=== PATIENT | male | born 1965 | race African-American/Black ===

== ENCOUNTER 2021-10-24 08:55 | Emergency (ER) | payer SELFPAY ==
[2021-10-24 09:08] VITALS: BP 136/89
--- NOTE | 2021-10-24 11:07 | XRay Report ---
NECK SOFT TISSUE 2 VIEWS INDICATION: possible plastic foreign body. COMPARISON: 08/21/2020 IMPRESSION: No radiopaque foreign body is detected on x-ray. Parapharyngeal soft tissues appear unr emarkable. The bony structures are intact. The upper airway appears widely patent. Signer Name: Ranjan Peña Jr, MD Signed: 10/24/2021 11:02 AM Workstation Name: [id number]
--- NOTE | 2021-10-24 11:32 | Emergency Department Report ---
ED General Adult HPI - General Chief complaint: Sore Throat Stated complaint: SOMETHING IN THROAT Time Seen by Provider: 10/24/21 09:50 Source: patient, educational interpreter Mode of arrival: Ambulatory Limitations: Language Barrier - History of Present Illness Initial comments: 56-year-old male patient presents with complaints of possible foreign body in his throat. Patient states he accidentally swallowed the plastic tab of a bottle. He denies any nausea or vomiting. No cough or chest pain per patient. He has not tried any medications for symptoms. - Related Data Previous Rx's Medication Instructions Recorded Last Taken Type Ibuprofen [Motrin 800 MG tab] 800 mg PO Q8HR PRN #20 tablet 10/24/21 Unknown Rx Nystas/Diphen/Xyl Visc/Mylanta 5 - 10 ml MM Q4H PRN #120 ml 10/24/21 Unknown Rx [Magic Mouthwash] Allergies Allergy/AdvReac Type Severity Reaction Status Date / Time No Known Allergies Allergy Unverified 10/24/21 09:03 ED Review of Systems ROS: Stated complaint: SOMETHING IN THROAT Other details as noted in HPI Constitutional: denies: malaise ENT: throat pain Respiratory: denies: cough, shortness of breath Cardiovascular: denies: chest pain Gastrointestinal: denies: abdominal pain, vomiting Hematological/Lymphatic: denies: swollen glands ED Past Medical Hx - Medications Home Medications: Home Medications Medication Instructions Recorded Confirmed Last Taken Type Ibuprofen [Motrin 800 MG tab] 800 mg PO Q8HR PRN #20 tablet 10/24/21 Unknown Rx Nystas/Diphen/Xyl Visc/Mylanta 5 - 10 ml MM Q4H PRN #120 ml 10/24/21 Unknown Rx [Magic Mouthwash] ED Physical Exam - General Limitations: No Limitations General appearance: alert, in no apparent distress - Head Head exam: Present: atraumatic - ENT ENT exam: Present: normal exam, normal orophraynx - Neck Neck exam: Present: normal inspection, full ROM. Absent: lymphadenopathy - Respiratory Respiratory exam: Present: normal lung sounds bilaterally. Absent: respiratory distress - Cardiovascular Cardiovascular Exam: Present: regular rate - Neurological Exam Neurological exam: Present: alert, oriented X3 - Psychiatric Psychiatric exam: Present: normal affect, normal mood - Skin Skin exam: Present: warm, dry, intact, normal color. Absent: rash ED Course Vital Signs 10/24/21 09:06 Temperature 98.2 F Pulse Rate 72 Respiratory 18 Rate Blood Pressure 136/89 [Right] O2 Sat by Pulse 98 Oximetry ED Medical Decision Making - Radiology Data Radiology results: report reviewed Fluoro Time In Minutes: NECK SOFT TISSUE 2 VIEWS INDICATION: possible plastic foreign body. COMPARISON: 08/21/2020 IMPRESSION: No radiopaque foreign body is detected on x-ray. Parapharyngeal soft tissues appear unremarkable. The bony structures are intact. The upper airway appears widely patent. - Medical Decision Making 56-year-old male patient presents with complaints of possible foreign body in his throat. Patient states he accidentally swallowed the plastic tab of a bottle. He denies any nausea or vomiting. No cough or chest pain per patient. He has not tried any medications for symptoms. X-rays negative for any acute foreign bodies. Suspect esophageal irritation from foreign body. Symptomatic treatment given for home. Recommend follow-up with PCP in 3 to 5 days. He is otherwise well-appearing and his vitals are stable. Patient stable for discharge home. Discussed signs and symptoms that should prompt immediate return to the ED with patient who verbalizes understand Critical care attestation.: If time is entered above; I have spent that time in minutes in the direct care of this critically ill patient, excluding procedure time. ED Disposition Clinical Impression: Foreign body sensation in throat Disposition: 01 HOME / SELF CARE / HOMELESS Is pt being admited?: No Condition: Stable Instructions: Esophagitis Prescriptions: Nystas/Diphen/Xyl Visc/Mylanta [Magic Mouthwash] 5 - 10 ml MM Q4H PRN #120 ml PRN Reason: pain Ibuprofen [Motrin 800 MG tab] 800 mg PO Q8HR PRN #20 tablet PRN Reason: pain Referrals: PRIMARY CARE, [Primary Care Provider] - 3-5 Days [facility] [Provider Group] - as needed Forms: Work/School Release Form(ED)
== END 2021-10-24 11:46 | disposition home or self-care (01) ==
LOC: ED 08:55
DX: R09.89 Other specified symptoms and signs involving the circulatory and respiratory systems (principal); Z79.899 Other long term (current) drug therapy
CPT/HCPCS: 70360; 99283